=== PATIENT | male | born 1980 | race Two or more races ===

== ENCOUNTER 2021-10-16 14:58 | Emergency (ER) | payer SELFPAY ==
[~2021-10-16] VITALS: Ht 170.2 cm; Wt 65.0 kg
[2021-10-16 15:42] VITALS: BP 120/70
== END 2021-10-16 16:57 | disposition left against medical advice (07) ==
LOC: ER 14:58
DX: Z53.21 Procedure and treatment not carried out due to patient leaving prior to being seen by health care provider (principal); F41.9 Anxiety disorder, unspecified